=== PATIENT | female | born 1960 | race Caucasian/White ===

== ENCOUNTER 2024-01-31 12:50 | Outpatient (CLI) | payer MEDICARE, BC, SELFPAY ==
--- NOTE | 2024-01-31 13:00 | MM_ITS ---
Patient: LIZY BOOKER Facility:?[facility] Patient ID:?[id number] Site Patient ID:?[id number]. Site :?[id number] Study:?XRay-Breast Bilateral 3D W/CAD-01/31/2024 3:19:17 PM Ordering Physician:Sahnita Chavez Final Report: BILATERAL SCREENING MAMMOGRAM WITH COMPUTER-AIDED DETECTION AND TOMOSYNTHESIS TECHNIQUE: CC and MLO views were obtained. These mammographic images have been obtained using full-field digital technique. These mammographic images were interpreted with the benefit of computer-aided detection. Breast Tomosynthesis was used in this interpretation. COMPARISON FILM: 10/16/12. FINDINGS: The breasts are almost entirely fatty. IMPRESSION: There is no radiographic evidence for malignancy. ASSESSMENT: BI-RADS Category 1: Negative RECOMMENDATION: Routine screening mammogram in 1 year. A lay language report of this examination will be provided to the patient. Renny Levy M.D. Diagnostic Radiologist [email or web address] DSM/sp R& Transcribed: 2:51 p.m. SP/Dictated by: Renny Levy MD @ 02/01/2024 12:22:00 PM Signed by:?Renny Levy MD @02/01/2024 2:59:52 PM (Electronic Signature)
== END 2024-01-31 12:51 | disposition home or self-care (01) ==
LOC: MAMMO 12:52
PROVIDERS: PCP Nurse Practitioner Family; Visit Provider Nurse Practitioner Family
DX: Z12.31 Encounter for screening mammogram for malignant neoplasm of breast (principal)
CPT/HCPCS: 77063; 77067

== ENCOUNTER 2024-06-12 11:23 | Outpatient (CLI) | payer MEDICARE, BC, SELFPAY | END 2024-06-12 11:24 | disposition home or self-care (01) | PROVIDERS: PCP Nurse Practitioner Family; Visit Provider Nurse Practitioner Family | DX: E78.5 Hyperlipidemia, unspecified (principal); I10 Essential (primary) hypertension; E11.9 Type 2 diabetes mellitus without complications | CPT/HCPCS: 80053; 80061 ==

== ENCOUNTER 2025-06-11 10:50 | Outpatient (CLI) | payer MEDICARE, BC, SELFPAY | END 2025-06-11 10:51 | disposition home or self-care (01) | LOC: NFLDREF 06-13 08:45 | PROVIDERS: PCP Nurse Practitioner Family; Referring Provider Nurse Practitioner Family; Visit Provider Nurse Practitioner Family | DX: E78.2 Mixed hyperlipidemia (principal); I10 Essential (primary) hypertension; E13.9 Other specified diabetes mellitus without complications; E66.01 Morbid (severe) obesity due to excess calories; Z68.43 Body mass index [BMI] 50.0-59.9, adult | CPT/HCPCS: 80053; 80061; 82043; 82570 ==

== ENCOUNTER 2025-06-18 08:59 | Day surgery (SDC) | payer MEDICARE, BC, SELFPAY ==
[2025-06-18] VITALS (20 sets, daily range): BP systolic 99–149; BP diastolic 50–80; PULSE 67–100; RESP 13–20; TEMP 36.1–36.9; O2SAT 93–99; BMI 53.0
[2025-06-18] MEDS: SODIUM CHLORIDE 0.9 % (FLUSH) 10 ML SYRINGE IVF (10:00)
[2025-06-18] MEDS: LACTATED RINGERS 1000 ML 1,000 ML 100 ML IV ×2 (10:00→13:53)
--- NOTE | 2025-06-18 10:45 | CRLHL7_ITS ---
For Patients: As a result of the Cures Act, medical imaging exams and procedure reports are released immediately into your electronic medical record. You may view this report before your referring provider. If you have questions, please contact your health care provider. INDICATION: Left hip arthroplasty. TECHNIQUE: Fluoroscopically guided intraoperative evaluation of the left hip. FINDINGS: Two portable spot intraoperative images demonstrate a left hip arthroplasty. 79.3 seconds fluoroscopy time utilized. IMPRESSION: Left hip arthroplasty. 79.3 seconds fluoroscopy time utilized intraoperatively. Dictated by Francisco Lr MD @ 06/23/2025 10:33:46 AM (Electronically Signed)
[2025-06-18] MEDS: OXYCODONE (CR) 10 MG TAB.ER.12H PO (11:30)
[2025-06-18] MEDS: CELECOXIB 200 MG CAPSULE PO (11:30)
[2025-06-18] MEDS: ACETAMINOPHEN 500 MG TABLET 1000 MG PO ×3 (11:30→23:32)
[2025-06-18] MEDS: MIDAZOLAM HCL 1 MG/ML inj IVP (11:32)
--- NOTE | 2025-06-18 11:36 | SUR.PREOP ---
TIME?OUT:?11:29 AM PT/RN/MDA?VERIFICATION?OF?SURGICAL?SITE,?PROCEDURE,?AND?CONSENT OBTAINED?PRIOR?TO?INVASIVE?PROCEDURE.
[2025-06-18] MEDS: TRANEXAMIC ACID 100 MG/ML INJ 1000 MG IV (12:21)
--- NOTE | 2025-06-18 14:26 | P.ANES_ITS ---
Anesthesia Charges Start Date/Time Anesthesia Start Date: 06/18/25 Anesthesia Start Time: 11:54 Stop Date/Time Anesthesia Stop Date: 06/18/25 Anesthesia Stop Time: 15:12 Coding CPT Codes CPT Codes: ANESTH HIP ARTHROPLASTY - 28778 ([id number]) P3 - PATIENT W/SEVERE SYS DISEASE, QK - BELT MACHINE OPERATOR 2-4 CNCRNT ANES PROC, QX - [employer] SUPERINTENDENT OF SCHOOLS SVC W/ MD MED DIRECTION
--- NOTE | 2025-06-18 14:26 | W.ANESCHARGE ---
Anesthesia Charges Start Date/Time Anesthesia Start Date: 06/18/25 Anesthesia Start Time: 11:54 Stop Date/Time Anesthesia Stop Date: 06/18/25 Anesthesia Stop Time: 15:12 Coding CPT Codes CPT Codes: ANESTH HIP ARTHROPLASTY - 55407 ([id number]) P3 - PATIENT W/SEVERE SYS DISEASE, QK - SOCK LINING EXAMINER 2-4 CNCRNT ANES PROC, QX - DISBURSING AGENT SVC W/ MD MED DIRECTION
--- NOTE | 2025-06-18 14:26 | W.PM.NB ---
Nerve Block Nerve Block Time Seen by Provider: 11:35 Date Seen: 06/18/25 Type of block requested by surgeon for post-operative analgesia: DORON/LFCN Side: left Time out performed: Yes Verification of patient name: Yes Verification of date of : Yes Site marking: site marked Name of person performing procedure: Marcio Continuous monitoring Was continuous monitoring of O2 sat, B/P, teletypesetter monitor, recorded every 15 minutes?: Yes Procedure Checklist: sterile prep, needles and gloves Ultrasound guided. Images saved: Yes Medications given in 5ml increments after negative aspiration: Ropivicaine %: 0.5 mL: 30 Needle gauge: 20 Precedex (mcg): 25 Patient tolerated procedure well: Yes Additional comments: Needle noted below psoas tendon needle noted adjacent to LFCN Block Charges Block Charge (with Pro Fee): Other Periph Nerve Block Use of Ultrasound Machine for Block: Yes- US Guidance/pain block
--- NOTE | 2025-06-18 14:29 | CRLHL7_ITS ---
For Patients: As a result of the Cures Act, medical imaging exams and procedure reports are released immediately into your electronic medical record. You may view this report before your referring provider. If you have questions, please contact your health care provider. INDICATION: Follow up a left total hip arthroplasty. TECHNIQUE: AP portable postoperative x-ray of the pelvis. Two dedicated views of the left hip performed postoperatively as well. FINDINGS: There is a left hip arthroplasty. The components are adequately aligned and well seated. Degenerative change of the symphysis pubis and right hip. IMPRESSION: Adequate alignment status post left total hip arthroplasty. Dictated by Francisco Lr MD @ 06/23/2025 10:35:05 AM (Electronically Signed)
--- NOTE | 2025-06-18 14:31 | P.ORPRC_ITS ---
Procedure Note Date of procedure: 06/18/25 Procedure: PREOPERATIVE DIAGNOSIS: Left hip osteoarthritis POSTOPERATIVE DIAGNOSIS: Left hip osteoarthritis NAME OF OPERATION: Left total hip arthroplasty SURGEON: Marcin Bell MD TECH INTERN: Jackeline Ramsay PA-C, DUSTIN Vazquez IMPLANTS: 1. [employer] [place] # 52 sector ingrowth cup 2. 36 x 52 +4 neutral polyethylene 3. Actis # 7 standard collared ingrowth stem 4. 36 + 5 ceramic femoral head ANESTHESIA: General ESTIMATED BLOOD LOSS: 500 cc COMPLICATIONS: None SPECIMENS: None DRAINS: None PREOPERATIVE ANTIBIOTICS: Ancef 3 grams INDICATIONS: The patient is a 65-year-old with a longstanding history of sever e, unrelenting left hip pain secondary to end-stage left hip osteoarthritis. Despite appropriate nonoperative management, including activity modification, use of an assist device, anti-inflammatories, [id number]-peh-[id number] pain medication, physical therapy and injections, they continue to have pain and disability. Operative intervention was offered. The risks, benefits and expected outcomes were discussed in detail. These included but were not limited to: Infection, bleeding, injury to blood vessel or nerve, venous thromboembolism. All questions were answered to their satisfaction. Use of an acute care certified nursing assistant was necessary throughout the case for patient positioning and safety, soft tissue retraction and closure. A modifier 22 should be added to this case. The patient's weight of 140 kg with a BMI 53 made positioning and exposure difficult. This added time to complete the case. PROCEDURE: The patient was placed supine on the [place] table. General anesthesia was administered. The acute care certified nursing assistant made sure the patient was properly positioned. The left hip was prepped and draped in the usual sterile fashion. The image intensifier was brought in for a perfect AP pelvis and a perfect double tear drop AP view of each hip which were used for intraoperative templating with our fluoroscopic guide. A bikini incision was made in the inguinal crease. The acute care certified nursing assistant retracted the soft tissues to protect them. Subcutaneous dissection was taken with electrocautery to the superficial fascia. The fascia was divided in line with the TFL fibers. Blunt dissection was carried medially to the tensor fascia rey and sartorius interval. Deep dissection was carried with electrocautery. The circumflex vessels were cauterized and divided. The capsule was exposed and then divided in a T-fashion, tagged with #1 FiberWire sutures. Retractors were placed in the joint, held by the acute care certified nursing assistant. The corkscrew was placed in the femoral head. The neck cut was made in the subcapital region. We made a second neck cut more distal. The napkin ring of bone was removed. The femoral head was removed intact. Acetabular retractors were placed, held by the acute care certified nursing assistant. The labrum was sharply debrided. The capsule was released. The 43 mm reamer was used to the true medial wall. We then enlarged in 2 mm increments using the image intensifier for our reamer placement. We impacted the cup which had excellent purchase. We placed the polyethylene. Attention was then turned to the proximal femur. The limb was placed in 140 degrees of external rotation, maximum extension and adduction. A significant amount of time was spent releasing the capsule to allow us to deliver the femur into the wound and complete the femoral side safely. Retractors were held by the acute care certified nursing assistant throughout the femoral preparation. The box gluer and canal finder were used. Broaches were used to a stable size. The calcar reamer was used. Trial components were placed. The hip was reduced and was found to be stable with appropriate soft tissue tension. Length and offset had been nicely restored using the image intensifier and our fluoroscopic guide. Trial components were removed. The stem was impacted. We placed the femoral head. Again, the hip was reduced and was found to be stable with appropriate soft tissue tension. Length and offset had been nicely restored. The acute care certified nursing assistant did a three minute dilute Betadine solution soak. The acute care certified nursing assistant irrigated the wound with 3 liters of normal saline via pulse lavage. The acute care certified nursing assistant repaired the anterior capsule with a #1 Vicryl and our previously placed Ethibond sutures. The acute care certified nursing assistant closed the fascia over the tensor fascia rey with a #1 PDO Stratafix, subcutaneous tissues with 2-0 Vicryl, skin with a running 3-0 Stratafix and glue. A dry dressing was applied by the acute care certified nursing assistant. Sponge and needle counts were correct x 2. The patient tolerated the procedure well; there were no apparent complications. They were awakened and extubated in the operating room, sent to the Post-Anesthesia Care Unit in satisfactory condition. PLAN: 1. The patient will be mobilized with physical therapy, weight-bearing as tolerates 2. Xarelto x 5 days then aspirin x 30 days will be used for DVT prophylaxis 3. The patient will be discharged once medically appropriate
--- NOTE | 2025-06-18 14:50 | PM.IMCN1 ---
Date of Consult Consult date: 06/18/25 Primary Care Provider: Shanita Wilson CNP Consult Narrative Narrative: Yi Childs is a 65 year old female With past medical history of hypertension, hyperlipidemia, diabetes and morbid obesity who presents for an elective total lt hip replacement surgery. Previous surgeries include abdominal hysterectomy, . No personal or family history of anesthesia complications or bleeding disorders. Patient has stopped all NSAIDs and has stopped her baby aspirin prior to sx. Patient's diabetes is controlled with a recent A1c of 6.1% this May. Review of Systems Status of ROS: Reports: 6 or more systems reviewed and unremarkable except as noted in History and below PFSH [facility] Medical History (Updated 06/18/25 @ 14:57 by Francy Espinoza MD) Hypertension ?I10 - Essential (primary) hypertension (ICD-10) Hyperlipidemia ?E78.5 - Hyperlipidemia, unspecified (ICD-10) Morbid obesity with body mass index (BMI) of 50.0 to 59.9 in adult ?E66.01 - Morbid (severe) obesity due to excess calories (ICD-10) ?Z68.43 - Body mass index [BMI] 50.0-59.9, adult (ICD-10) Osteoarthritis of left hip ?M16.12 - Unilateral primary osteoarthritis, left hip (ICD-10) Diabetes 1.5, managed as type 2 ?E13.9 - Other specified diabetes mellitus without complications (ICD-10) Surgical History (Updated 06/18/25 @ 14:54 by Francy Espinoza MD) H/O dilation and curettage ?Z98.890 - Other specified postprocedural states (ICD-10) History of abdominal hysterectomy (11/08/12) ?Z90.710 - Acquired absence of both cervix and uterus (ICD-10) History of section ?Z98.891 - History of uterine scar from previous surgery (ICD-10) Family History Son Blood clot in leg Social History (Updated 06/11/25 @ 13:47 by Angélica Paredes ~ [facility]) Narrative: to Robby 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 Three adult children, 10 grandchildren What is your current living situation?: I presently have a place to live Problems where you live: no known problems Problems where you live details: NA In the past 12 months, utilities in danger of being shut off: no In past 12 months, lack of transportation kept you from medical appts, meetings, work, or getting things needed for daily living: no In the past 12 mos, have been you worried that your food would run out before you had money to buy more?: never true In the past 12 mos, the food you bought just didn't last and you didn't have money to buy more?: never true Smoking Status: Never smoker Do you use any of these nicotine containing products: None Second hand tobacco smoke exposure: No How often do you have a drink containing alcohol: 2-4 times a month How many standard drinks containing alcohol do you have on a typical day: 1 or 2 AUDIT-C Alcohol total score: 2 Non-prescribed substance use: denies use Caffeine: Yes How often does anyone, including family, friends and others, physically hurt you: never How often does anyone, including family, friends and others, insult or talk down to you: never How often does anyone, including family, friends and others, threaten you with harm: never How often does anyone, including family, friends and others, scream or curse at you: never service: No Meds Home Medications and Allergies Home Medications ?Medication ?Instructions ?Recorded ?Confirmed ?Type aspirin 81 mg tablet,delayed 81 mg PO QDAY 07/05/23 06/18/25 History release (Adult Low Dose Aspirin) Held on 06/18/25. Instructions: Resume on 06/24/25. take aspirin 81 mg twice a day for 30 days after completing 5 days of anticoagulation with Xarelto/ rivaroxaban. After 30 days you can go back to regular dose of aspirin 81 mg once a day. amlodipine 5 mg tablet 5 mg PO QDAY #90 tabs 06/12/24 06/18/25 Rx atorvastatin 40 mg tablet 40 mg PO QDAY #90 tabs 06/12/24 06/18/25 Rx lisinopril 20 2 tab PO QDAY #180 tabs 06/12/24 06/18/25 Rx mg-hydrochlorothiazide 12.5 mg tablet ibuprofen 200 mg tablet (Motrin IB) 400 mg PO Q8H PRN 06/11/25 06/18/25 History Held on 06/18/25. Instructions: Resume on 06/24/25. metformin 500 mg tablet,extended 500 mg PO BID #180 tabs 06/11/25 06/18/25 Rx release 24 hr phentermine 30 mg capsule 30 mg PO QDAY #90 caps 06/11/25 06/18/25 Rx Held on 06/18/25. Instructions: Resume on 06/25/25. Resume once your primary care physician allows it. acetaminophen 500 mg capsule 500 - 1,000 mg (1 - 2 x 500 mg) PO 06/18/25 Rx Q6H PRN pain #100 caps aspirin 81 mg chewable tablet 81 mg PO BID for DVT prophylaxis 06/18/25 Rx (Aspirin Childrens) 30 days #60 tabs oxycodone 5 mg tablet 2.5 - 5 mg (0.5 - 1 x 5 mg) PO 06/18/25 Rx Q4-6H PRN Pain #42 tabs rivaroxaban 10 mg tablet (Xarelto) 10 mg PO DAILY DVT prophylaxis 4 06/18/25 Rx days #4 tabs sennosides 8.6 mg tablet (Senna 17.2 mg (2 x 8.6 mg) PO BID PRN 06/18/25 Rx Lax) constipation #100 tabs Allergies Allergy/AdvReac Type Severity Reaction Status Date / Time No Known Drug Allergies Allergy Verified 06/18/25 09:33 Exam Narrative: Exam Narrative: Physical exam GENERAL: Comfortable, no acute distress. HEAD AND NECK: Atraumatic, normocephalic CARDIOVASCULAR: RRR. Normal S1, S2. No murmurs. RESPIRATORY: Clear to auscultation B/L. Good air entry B/L. NEUROLOGY: Alert, awake, oriented X 3. Normal speech. PSYCH: Normal mood, normal affect. Const: Vital Signs, click to edit/add: Vital Signs - 24 hr 06/18/25 10:00 Temperature 98.0 F Pulse Rate 96 Respiratory Rate 16 Blood Pressure 149/78 H Pulse Oximetry 99 Oxygen Delivery Me thod Room Air Assessment and Plan Assessment and plan (1) Status post total hip replacement, left: Problem comment: -Start early ambulation with physical therapy. -Xarelto x 5 days then aspirin x 30 days will be used for DVT prophylaxis -Monitor for urine output postoperatively, bladder scan if needed. -Encourage incentive spirometry. Status: Acute (2) Diabetes 1.5, managed as type 2: Problem comment: Type II diabetes - A1c of 6.1% in 05/2025, on metformin. will order insulin sliding scale during her stay at the hospital. Status: Chronic (3) Hypertension: Problem comment: HTN: on amlodipine 5 mg daily, lisinopril/ hydrochlorothiazide 20-12.52 tablets every day. Status: Acute (4) Morbid obesity with body mass index (BMI) of 50.0 to 59.9 in adult: Problem comment: Morbid Obesity, BMI 51.9. Patient was on Ozempic for a while to help with weight loss. Patient did not like some of the side effects. she was restarted on phentermine 30 mg daily that she will resume after her left hip replacement. Status: Acute (5) Hyperlipidemia: Problem comment: on a statin Status: Acute (6) Osteoarthritis of left hip: Problem comment: Severe, [id number] Status: Acute Total Time Spent Total Time Spent: Time spent: Today I spent 75 minutes seeing the patient, discussing the patient with ER staff, reviewing Expanse and EPIC notes/diagnostics, discussing the care plan with our care time that includes social work, PT/OT, pharmacy, RT, residential and documenting my impressions and plan in the medical record.
--- NOTE | 2025-06-18 15:11 | P.ANES_ITS ---
Anesthesia Charges Start Date/Time Anesthesia Start Date: 06/18/25 Anesthesia Start Time: 11:54 Stop Date/Time Anesthesia Stop Date: 06/18/25 Anesthesia Stop Time: 15:12 Coding CPT Codes CPT Codes: ANESTH HIP ARTHROPLASTY - 98963 ([id number]) P3 - PATIENT W/SEVERE SYS DISEASE, QK - RADIOLOGY EQUIPMENT SERVICER 2-4 CNCRNT ANES PROC, QX - CREW DISPATCHER SVC W/ MD MED DIRECTION
--- NOTE | 2025-06-18 15:11 | W.ANESCHARGE ---
Anesthesia Charges Start Date/Time Anesthesia Start Date: 06/18/25 Anesthesia Start Time: 11:54 Stop Date/Time Anesthesia Stop Date: 06/18/25 Anesthesia Stop Time: 15:12 Coding CPT Codes CPT Codes: ANESTH HIP ARTHROPLASTY - 07349 ([id number]) P3 - PATIENT W/SEVERE SYS DISEASE, QK - SCALE TESTER 2-4 CNCRNT ANES PROC, QX - VENEER MARKER SVC W/ MD MED DIRECTION
--- NOTE | 2025-06-18 15:57 | SUR.PHASEI ---
mona CAGE bag number 3 at 1530; 650cc left at end of phase 1; unable to add to emar
[2025-06-18] MEDS: CEFAZOLIN 3 GM in 0.9 % SODIUM CHLORIDE Mini-bag 100 ML IVPB (18:00)
[2025-06-18] MEDS: SENNOSIDES 1 TAB TABLET 2 TAB PO (21:25)
[2025-06-19] MEDS: CEFAZOLIN 3 GM in 0.9 % SODIUM CHLORIDE Mini-bag 100 ML IVPB (02:19)
[2025-06-19 02:33] VITALS: BP 163/92; PULSE 102; RESP 18; O2SAT 98
[2025-06-19] MEDS: ACETAMINOPHEN 500 MG TABLET 1000 MG PO (05:46)
--- NOTE | 2025-06-19 06:27 | PC.NURSE ---
19-: Pleasant and cooperative. SBA with gb and walker. Ambulating well. Rating pain 0-2/10, declining need for prn pain medication. Active ice to left hip, dressing CDI.?
[2025-06-19 06:56] LABS: Hematocrit 37.0 % (33.0-51.0); Hemoglobin* 11.9 gm/dL (12.0-16.0); Mean Corpuscular HGB Conc 32 gm/dL (32-36); Mean Corpuscular Hemoglobin 29 pg (26-34); Mean Corpuscular Volume 91 fL (80-100); Red Blood Count 4.08 m/uL (4.00-5.20); White Blood Count* 13.21 K/uL (4.50-11.00)
[2025-06-19 07:00] LABS: Albumin* 3.7 g/dL (3.3-5.0); Chloride* 104 mmol/L (96-114); Sodium* 137 mmol/L (135-149)
[2025-06-19 07:01] LABS: Potassium* 3.9 mmol/L (3.6-5.1); Slide Review Reflex No
[2025-06-19 07:03] LABS: Alanine Aminotransferase* 22 U/L (4-35); Alkaline Phosphatase* 70 U/L (40-150); Anion Gap 5 mEq/L (7-15); Aspartate Amino Transferase* 40 U/L (12-35); Bilirubin Total* 0.7 mg/dL (0.1-1.5); Blood Urea Nitrogen* 14 mg/dL (7-30); Calcium* 9.3 mg/dL (8.4-10.6); Carbon Dioxide* 28 mmol/L (20-32); Creatinine* 0.6 mg/dL (0.5-1.5); Est. Creatinine Clearance* 45.16; Estimated Glomerular Filt Rate 98 ml/min; Glucose* 127 mg/dL (60-115); Total Protein* 6.0 g/dL (6.0-8.3)
[2025-06-19 08:15] VITALS: BP 140/73; PULSE 124; RESP 16; TEMP 36.8; O2SAT 96
--- NOTE | 2025-06-19 09:01 | PM.ORPN ---
Subjective Subjective Time Seen by Provider: 07:15 Date Seen: 06/19/25 Principal diagnosis: Status post left hip replacement Interval history: Yi plans to discharge today with her . He is with her this morning. She is comfortable in the recliner this morning Ortho Exam Narrative Exam Narrative: Alert and oriented x3. Patient is in no acute distress. Converses without labored breathing. Hearing is grossly intact. Ambulates with a walker. Examination of the left hip shows mild soft tissue edema. Dressing is in place and intact. No erythema or warmth or sign of infection. CMS intact left lower extremity. Calves are soft and nontender. Const Vital Signs, click to edit/add: Vital Signs - 24 hr 06/18/25 10:00 06/18/25 15:10 06/18/25 15:15 Temperature 98.0 F 97.9 F Pulse Rate 96 68 71 Respiratory Rate 16 20 18 Blood Pressure 149/78 H 113/60 108/60 Pulse Oximetry 99 93 94 Oxygen Delivery Method Room Air Room Air 06/18/25 15:20 06/18/25 15:25 06/18/25 15:30 Temperature Pulse Rate 67 68 70 Respiratory Rate 16 15 13 Blood Pressure 111/50 L 99/61 103/63 Pulse Oximetry 93 94 95 Oxygen Delivery Method 06/18/25 15:35 06/18/25 15:40 06/18/25 15:52 Temperature 97.0 F L 97.2 F L Pulse Rate 71 69 70 Respiratory Rate 14 16 16 Blood Pressure 101/70 119/77 105/67 Pulse Oximetry 94 94 95 Oxygen Delivery Method Room Air 06/18/25 16:00 06/18/25 16:15 06/18/25 16:30 Temperature 97.5 F L Pulse Rate 76 80 71 Respiratory Rate 16 16 16 Blood Pressure 126/76 125/73 127/77 Pulse Oximetry 97 98 96 Oxygen Delivery Method Room Air Room Air Room Air 06/18/25 16:45 06/18/25 17:00 06/18/25 17:30 Temperature 97.7 F Pulse Rate 78 72 78 Respiratory Rate 18 16 16 Blood Pressure 117/75 127/77 123/80 Pulse Oximetry 97 99 97 Oxygen Delivery Method Room Air Room Air Room Air 06/18/25 18:15 06/18/25 19:16 06/18/25 21:39 Temperature 97.7 F Pulse Rate 81 100 100 Respiratory Rate 16 16 16 Blood Pressure 114/74 121/69 126/79 Pulse Oximetry 98 96 Oxygen Delivery Method Room Air Room Air 06/18/25 22:41 06/18/25 23:00 06/19/25 02:33 Temperature 98.4 F Pulse Rate 92 102 H Respiratory Rate 16 18 18 Blood Pressure 132/78 163/92 H Pulse Oximetry 96 97 98 Oxygen Delivery Method Room Air Room Air Room Air Assessment and Plan Assessment and plan (1) Status post total hip replacement, left: Problem details: -Start early ambulation with physical therapy. -Xarelto x 5 days then aspirin x 30 days will be used for DVT prophylaxis -Monitor for urine output postoperatively, bladder scan if needed. -Encourage incentive spirometry. Status: Acute Assessment and Plan: Plan for discharge is today, and when they meets discharge criteria. DVT prophylaxis upon discharge [includes Xarelto 10mg daily for a total of 5 days, then Aspirin 81mg twice daily for 30 days]. Remove dressing 1 week. Observe wound and phone Orthopedics with any questions or concerns Use Ice on operative hip unrestricted. Return to clinic in 7-10 days for a wound check Return to clinic in 6 weeks with surgeon Minimize narcotic use. Wean off and discontinue soon as possible. Activities as tolerated. No strenuous activity. Attend outpt PT
[2025-06-19] MEDS: SENNOSIDES 1 TAB TABLET 2 TAB PO (09:26)
[2025-06-19] MEDS: RIVAROXABAN 10 MG TABLET PO (09:26)
[2025-06-19] MEDS: ATORVASTATIN CALCIUM 40 MG TABLET PO (09:26)
--- NOTE | 2025-06-19 11:51 | PC.NURSE ---
Arrived to find the patient sitting in their chair alert and oriented. Vitally they showed a pulse of 124 and a blood pressure of 140/73. This is a change from 0300 when pulse was 102 and blood pressure 163/92. Pulse felt like every third beat or so was weaker. MD notified and EKG taken. Sinus tachycardia recorded. Otherwise, they appear well and report no pain or complications. Their left hip incision area is covered without sign of discharge, bruising, or swelling. CMS intact in all extremities. Breathing is clear and dry. No edema. The patient tolerated PT very well and was approved for discharge. They appeared in a stable state of health at time of leaving.?
== END 2025-06-19 10:30 | disposition home or self-care (01) ==
LOC: OR 09:01 → MEDSURG 09:03
PROVIDERS: Student in an Organized Health Care Education/Training Program; PCP Nurse Practitioner Family; Visit Provider Orthopaedic Surgery
PROC: (CPT 27130; principal; 2025-06-18 10:45)
DX: M16.12 Unilateral primary osteoarthritis, left hip (principal); G89.18 Other acute postprocedural pain; E11.9 Type 2 diabetes mellitus without complications; E66.01 Morbid (severe) obesity due to excess calories; Z68.43 Body mass index [BMI] 50.0-59.9, adult; I10 Essential (primary) hypertension; E78.5 Hyperlipidemia, unspecified; Z79.82 Long term (current) use of aspirin; Z79.84 Long term (current) use of oral hypoglycemic drugs
CPT/HCPCS: 27130; 01214; 36415; 64450; 73501; 76000; 76942; 80053; 82962; 83735; 85027; 86850; 86900; 86901; 97110; 97116; 97161; 97165; 97535; A9270; C1776; J0690; J1100; J1171; J2250; J2371; J2405; J2704; J2795; J3010; J3490; J7120

== ENCOUNTER 2025-07-01 07:06 | Outpatient (RCR) | payer MEDICARE, BC, SELFPAY ==
--- NOTE | 2025-07-01 08:17 | PT.OPEX ---
PT [place] [facility] PT [facility] Outpatient Eval Start: 07/01/25 07:13 Freq: Status: Active Protocol: Document 07/01/25 07:14 HLA (Rec: 07/01/25 08:08 HLA No Response) E-signed By Mulu Loza, PT, DPT Physical Therapy Outpatient Evaluation Insurance Information Recert Due Date 09/28/25 Insurance Name Medicare B,Blue Cross/[employer] Medical Diagnosis L ant NAOMI Treating Diagnosis weakness, impaired ROM after L ant NAOMI Referring MD Bell Subjective Preferred Name Yi Subjective Leg is heavy, not painful necessarily. Advanced herself to a cane at home. Still struggles moving in bed. Doing her exercises 2-3x/day. Pain Comments mild to none L hip, more stiffness. Date of Next 07/01/25 Physician Visit Date of Surgery (If 06/18/25 applicable) Current Work Status Retired Precautions Weight Bearing Weight Bear as Tolerated Status Therapy Limitations/ Not Limited Systems Review Objective Range of Motion B UEs WNL R LE WNL L hip 15-100 flex, abd 0-25, ER 0-20, IR 0-20 L knee/ankle full Strength 5-/5 R LE L hip 3+/5, knee 5-/5, ankle 5/5 UEs 5/5 Swelling not swelling but 2 cm open/pus area along mid incision L hip in her fold. Blackened area surrounding-mole? pt indicates she has had that. Palpation tender along lat thigh/IT band Balance & Gait Gait hips flexed, cane too high, antalgic L LE. Stairs step to with railing Balance good seated/fair stand with cane Posture rounded shldrs, fwd head, flexed at hips Sensation/Reflexes intact to light touch Functional Test LEFS 38/80 or 47.5% Performed & Score Assessment Assessment/ Yi is a 65 year old female s/p L ant NAOMI 06/18/[address] Bell. She had been using a cane prior to surgery. Pt lives with spouse in split level home. Stairs have been going ok. She has been sleeping in the recliner, difficulty getting in and out of bed. Pain has been mild to none since surgery and primarily she is taking Tylenol, no narcotics. She has drainage/pus area 2 cm along incision, warmth/moisture in her abdominal folds. Sees ortho for that today. Pt with limited L hip ROM, strength, antalgic gt after L NAOMI. Her posture and tendency to sit in recliner increase HF and we worked on lying flat in bed, bed mob as well as ex to increase core strength and stretch//strengthen hips. Pt will benefit from PT weekly to advance ex for ROM, strength and gt, return to community distance amb. Primary Functional impaired ROM, strength, bed mob, transfers, gt ability Limitations Plan of Care Rehabilitation Good Potential Physical Therapy Within 4-6 weeks Goals 1. Pt will amb level surfaces 20 min without an assistive device and no evidence of limp. 2. Pt will ascend/descend 13 stairs with railing reciprocally, safely and independently for household and community mobility. 3. Pt will demonstrate normal strength of surgical hip to prevent substitution of movement, prevent falls with mobility. 4. Pt will be independent in home ex program to promote strength and mobility and to prevent falls. Coordination/ Referral Source Communication With Treatment Plan/ Gait Training,Manual Therapy,Neuromuscular Re-ed,Self- Direct Interventions Care/Home Management,Therapeutic Activities,Therapeutic Exercises Patient Will Be Completion of LTG(s),Skills Plateau,Independent w/HEP, Discharged From Independently Progressing Therapy Evaluation Billing Untimed Code 15 Treatment Minutes PT Eval No Charge No Complexity Low Certification Information Initial 07/01/25 Certification Date Ending Certification 09/28/25 Date Provider Signature Yes Required Provider Signature POC & Medical Necessity Shows Agreement With Physician NPI Number Write NPI# Here Physician Comment/ : Change Physician Signature Please Sign/Date Here & Date Requested
== END 2025-10-09 14:45 | disposition home or self-care (01) ==
PROVIDERS: PCP Nurse Practitioner Family; Visit Provider Orthopaedic Surgery
DX: Z47.1 Aftercare following joint replacement surgery (principal); Z96.642 Presence of left artificial hip joint; Z51.89 Encounter for other specified aftercare
CPT/HCPCS: 97161

== ENCOUNTER 2025-07-05 22:48 | Emergency (ER) | payer MEDICARE, BC, SELFPAY ==
[2025-07-05 23:15] VITALS: BP 104/59; PULSE 117; RESP 18; TEMP 37.1; O2SAT 96; BMI 52.5
--- NOTE | 2025-07-06 00:03 | ED.GENADULT ---
HPI - General Adult General Time Seen by Provider: 00:03 Date Seen: 07/06/25 Chief complaint: Post Op Complication Stated complaint: discharge on bandage from L hip replacement Time Seen by Provider: 07/06/25 00:03 Source: patient Mode of arrival: ambulatory Limitations: no limitations History of Present Illness HPI narrative: 65-year-old female who is postop hip replacement on June 14 for comes in today with concern for drainage on her bandage. Patient was seen in the office on July 03 after wound had been debrided July 01. Related Data Home Medications ?Medication ?Instructions ?Recorded ?Confirmed aspirin 81 mg tablet,delayed 81 mg PO QDAY 07/05/23 07/05/25 release (Adult Low Dose Aspirin) ibuprofen 200 mg tablet (Motrin IB) 400 mg PO Q8H PRN 06/11/25 07/05/25 Held on 06/18/25. Instructions: Resume on 06/24/25. Previous Rx's ?Medication ?Instructions ?Recorded phentermine 30 mg capsule 30 mg PO QDAY #90 caps 06/11/25 Held on 06/18/25. Instructions: Resume on 06/25/25. Resume once your primary care physician allows it. aspirin 81 mg chewable tablet 81 mg PO BID for DVT prophylaxis 06/18/25 (Aspirin Childrens) 30 days #60 tabs amlodipine 5 mg tablet 5 mg PO QDAY #90 tabs 06/24/25 atorvastatin 40 mg tablet 40 mg PO QDAY #90 tabs 06/24/25 lisinopril 20 2 tab PO QDAY #180 tabs 06/27/25 mg-hydrochlorothiazide 12.5 mg tablet cephalexin 500 mg capsule 500 mg PO QID #40 caps 07/03/25 Allergies Allergy/AdvReac Type Severity Reaction Status Date / Time No Known Drug Allergies Allergy Verified 07/05/25 23:26 [facility] Medical History (Updated 07/06/25 @ 00:43 by Grayson Lyle MD) Hypertension ?I10 - Essential (primary) hypertension (ICD-10) Hyperlipidemia ?E78.5 - Hyperlipidemia, unspecified (ICD-10) Morbid obesity with body mass index (BMI) of 50.0 to 59.9 in adult ?E66.01 - Morbid (severe) obesity due to excess calories (ICD-10) ?Z68.43 - Body mass index [BMI] 50.0-59.9, adult (ICD-10) Osteoarthritis of left hip ?M16.12 - Unilateral primary osteoarthritis, left hip (ICD-10) Diabetes 1.5, managed as type 2 ?E13.9 - Other specified diabetes mellitus without complications (ICD-10) Surgical History (Updated 07/06/25 @ 00:41 by Grayson Lyle MD) H/O dilation and curettage ?Z98.890 - Other specified postprocedural states (ICD-10) History of abdominal hysterectomy (11/08/12) ?Z90.710 - Acquired absence of both cervix and uterus (ICD-10) History of section ?Z98.891 - History of uterine scar from previous surgery (ICD-10) Family History Son Blood clot in leg Social History (Updated 06/11/25 @ 13:47 by Angélica Paredes ~ [facility]) Narrative: to Robby 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 Three adult children, 10 grandchildren What is your current living situation?: I presently have a place to live Problems where you live: no known problems Problems where you live details: NA In the past 12 months, utilities in danger of being shut off: no In past 12 months, lack of transportation kept you from medical appts, meetings, work, or getting things needed for daily living: no In the past 12 mos, have been you worried that your food would run out before you had money to buy more?: never true In the past 12 mos, the food you bought just didn't last and you didn't have money to buy more?: never true Smoking Status: Never smoker Do you use any of these nicotine containing products: None Second hand tobacco smoke exposure: No How often do you have a drink containing alcohol: 2-4 times a month How many standard drinks containing alcohol do you have on a typical day: 1 or 2 AUDIT-C Alcohol total score: 2 Non-prescribed substance use: denies use Caffeine: Yes How often does anyone, including family, friends and others, physically hurt you: never How often does anyone, including family, friends and others, insult or talk down to you: never How often does anyone, including family, friends and others, threaten you with harm: never How often does anyone, including family, friends and others, scream or curse at you: never service: No Exam Narrative: Exam Narrative: General: well nourished , NAD Head: Atraumatic and normocephalic ENT: External ears and external nose are normal Eyes: Conjunctiva clear, pupils are equal reactive, external ocular motions are intact Neck: Full spontaneous range of motion of the neck Lungs: No respiratory distress Musculoskeletal: No tenderness or deformity Neurologic: No gross focal neurologic deficits Skin: Dressing soaked with serosanguineous drainage, Left anterior hip incision with about 2.5cm by 1 cm area of necrotic tissue with copious serosanguineous drainage. Psych: Mood and affect are appropriate Const: Vital Signs, click to edit/add: Vital Signs - 24 hr 07/05/25 23:15 Temperature 98.7 F Pulse Rate [Pulse Oximeter] 117 H Respiratory Rate 18 Blood Pressure [Ri ght Forearm] 104/59 L Pulse Oximetry 96 Oxygen Delivery Me thod Room Air Course Course ED Course: The reviewed orthopedic offices from July 01 in June say when patient is seen for concerns about her wound, debrided on July 03 and I did review the images in the note from that visit. Patient presents today with drainage from her incision for her PERC placement. In the mid point, there is an area of dehiscence with some necrotic tissue. Copious serosanguineous drainage from this area. Wound was gently debrided and additional serosanguineous fluid was expressed. It is approximately 100 mL total was removed from the wound using suction. No purulent drainage. Will discuss with Orthopedics. Patient has an appointment with orthopedics in the morning as well as wound clinic the next day. Reevaluation(s) Time of Reevaluation #1: 00:41 Reevaluation #1: Care discussed with Jackeline Tate who knows the patient well, has an appointment with the patient and about 8 hours. Recommends packing the wound with gauze and absorbent dressing and will follow-up. Time of Reevaluation #2: 00:48 Reevaluation #2: Patient recheck, the gauze that was placed on the wound has scan serous drainage. I did express another 3-4 mL of fluid out. A 2 x 2 packing was placed in the wound with that sort of dressing over and patient discharged. Vital Signs Vital signs: Initial Vital Signs Temperature 98.7 F 07/05/25 23:15 Temperature Source Temporal Artery Scan 07/05/25 23:15 Pulse Rate 117 H 07/05/25 23:15 Respiratory Rate 18 07/05/25 23:15 Blood Pressure 104/59 L 07/05/25 23:15 Blood Pressure Mean 74 07/05/25 23:15 Blood Pressure Position Sitting 07/05/25 23:15 Pulse Oximetry 96 07/05/25 23:15 Oxygen Delivery Method Room Air 07/05/25 23:15 Vital Signs Temperature 98.7 F 07/05/25 23:15 Pulse Rate 117 H 07/05/25 23:15 Respiratory Rate 18 07/05/25 23:15 Blood Pressure 104/59 L 07/05/25 23:15 Pulse Oximetry 96 07/05/25 23:15 Oxygen Delivery Method Room Air 07/05/25 23:15 Temperature 98.7 F 07/05/25 23:15 Pulse Rate 117 H 07/05/25 23:15 Respiratory Rate 18 07/05/25 23:15 Blood Pressure 104/59 L 07/05/25 23:15 Pulse Oximetry 96 07/05/25 23:15 Oxygen Delivery Method Room Air 07/05/25 23:15 Discharge Plan Discharge Clinical Impression: Status post total hip replacement, left, Seroma after procedure Wound disruption, post-op, skin Qualifiers: Encounter type: initial encounter Qualified Code(s): T81.31XA - Disruption of external operation (surgical) wound, not elsewhere classified, initial encounter Patient Disposition: Home, Self-Care Condition: Improved Instructions: Seroma (DC) Additional Instructions: Leave current a dressing in place. Follow-up with orthopedics in the morning as scheduled. Activity Level: Activity as Tolerated Discharge Diet: Regular Prescriptions: No Action phentermine 30 mg capsule 30 mg PO QDAY Qty: 90 0RF Rx Instructions: must administer 2 hours after breakfast aspirin [Adult Low Dose Aspirin] 81 mg tablet,delayed release (DR/EC) 81 mg PO QDAY ibuprofen [Motrin IB] 200 mg tablet 400 mg PO Q8H PRN cephalexin 500 mg capsule 500 mg PO QID Qty: 40 0RF aspirin [Aspirin Childrens] 81 mg tablet,chewable 81 mg PO BID 30 Days Qty: 60 0RF atorvastatin 40 mg tablet 40 mg PO QDAY Qty: 90 1RF amlodipine 5 mg tablet 5 mg PO QDAY Qty: 90 1RF lisinopril-hydrochlorothiazide 20-12.5 mg tablet 2 tab PO QDAY Qty: 180 3RF Follow Up/Referrals: Shanita Wilson CNP [Primary Care Provider, Family Practice] Stand Alone Forms: [facility] Info Instructions
== END 2025-07-06 01:16 | disposition home or self-care (01) ==
PROVIDERS: Emergency Provider Family Medicine; PCP Nurse Practitioner Family
DX: T81.31XA Disruption of external operation (surgical) wound, not elsewhere classified, initial encounter (principal); L76.34 Postprocedural seroma of skin and subcutaneous tissue following other procedure
CPT/HCPCS: 87070; 87205; 99283; 99284

== ENCOUNTER 2025-07-06 20:20 | Inpatient (IN) | payer MEDICARE, BC, SELFPAY ==
[2025-07-06] VITALS (20 sets, daily range): BP systolic 69–123; BP diastolic 33–75; PULSE 73–97; RESP 14–23; TEMP 35.8–36.7; O2SAT 86–99; BMI 52.7
[2025-07-06] MEDS: LACTATED RINGERS 1000 ML 1,000 ML 100 ML IV ×2 (14:05→17:41)
[2025-07-06] MEDS: SODIUM CHLORIDE 0.9 % (FLUSH) 10 ML SYRINGE IVF (14:36)
[2025-07-06] MEDS: VANCOMYCIN 2 GM/400 ML 2 GM/400 ML PIGGYBACK IVPB (16:45)
[2025-07-06] MEDS: PHENYLEPHRINE 100 MCG/ML SYRINGE IVP (17:48)
[2025-07-06] MEDS: ACETAMINOPHEN 500 MG TABLET 1000 MG PO (20:11)
[2025-07-06] MEDS: SENNOSIDES 1 TAB TABLET 2 TAB PO (21:07)
[2025-07-06] MEDS: ASPIRIN 81 MG TAB.CHEW PO (21:07)
[2025-07-06] MEDS: ATORVASTATIN CALCIUM 40 MG TABLET PO (22:02)
[2025-07-06] MEDS: ERTAPENEM 1 GM in 0.9 % SODIUM CHLORIDE Mini-bag 100 ML IVPB (22:02)
[2025-07-07] VITALS (9 sets, daily range): BP systolic 100–128; BP diastolic 43–79; PULSE 68–89; RESP 14–18; TEMP 36.3–37; O2SAT 95–99
[2025-07-07] MEDS: ACETAMINOPHEN 500 MG TABLET 1000 MG PO ×4 (01:34→20:39)
[2025-07-07] MEDS: VANCOMYCIN 2 GM/400 ML 2 GM/400 ML PIGGYBACK IVPB ×2 (05:09→17:05)
[2025-07-07 06:53] LABS: Hematocrit 29.8 % (33.0-51.0); Hemoglobin* 9.4 gm/dL (12.0-16.0); Immature Granulocytes Abs Auto 0.03 K/uL (0.00-0.30); Immature Granulocytes Pct Auto 0.3 %; Mean Corpuscular HGB Conc 32 gm/dL (32-36); Mean Corpuscular Hemoglobin 29 pg (26-34); Mean Corpuscular Volume 90 fL (80-100); RDW Coefficient of Variation % 13.8 % (11.5-15.5); Red Blood Count 3.30 m/uL (4.00-5.20); White Blood Count* 9.50 K/uL (4.50-11.00)
[2025-07-07 07:04] LABS: Lymphocytes Absolute Auto 0.90 K/uL (0.90-2.90); Slide Review Reflex No
[2025-07-07 07:49] LABS: Erythrocyte SedimentationRate* 51 mm/hr (2-20)
[2025-07-07] MEDS: ASPIRIN 81 MG TAB.CHEW PO ×2 (09:15→20:40)
[2025-07-07] MEDS: SENNOSIDES 1 TAB TABLET 2 TAB PO ×2 (09:15→20:39)
[2025-07-07] MEDS: cefTRIAXone 2 GM in 0.9 % SODIUM CHLORIDE Mini-bag 100 ML IVPB (12:08)
[2025-07-07] MEDS: ATORVASTATIN CALCIUM 40 MG TABLET PO (20:39)
[2025-07-08] VITALS (7 sets, daily range): BP systolic 107–129; BP diastolic 65–85; PULSE 75–89; RESP 16–18; TEMP 36.4–36.8; O2SAT 94–98
[2025-07-08] MEDS: ACETAMINOPHEN 500 MG TABLET 1000 MG PO ×4 (02:06→21:04)
[2025-07-08] MEDS: VANCOMYCIN 2 GM/400 ML 2 GM/400 ML PIGGYBACK IVPB ×2 (05:00→17:08)
[2025-07-08] MEDS: cefTRIAXone 2 GM in 0.9 % SODIUM CHLORIDE Mini-bag 100 ML IVPB (09:37)
[2025-07-08] MEDS: ASPIRIN 81 MG TAB.CHEW PO ×2 (09:39→21:05)
[2025-07-08] MEDS: SENNOSIDES 1 TAB TABLET 2 TAB PO (09:39)
[2025-07-08] MEDS: ATORVASTATIN CALCIUM 40 MG TABLET PO (21:04)
[2025-07-09 02:10] VITALS: BP 118/72; PULSE 77; RESP 18; TEMP 36.7; O2SAT 96
[2025-07-09] MEDS: ACETAMINOPHEN 500 MG TABLET 1000 MG PO ×3 (02:11→17:52)
[2025-07-09] MEDS: VANCOMYCIN 2 GM/400 ML 2 GM/400 ML PIGGYBACK IVPB ×2 (04:50→17:53)
[2025-07-09 07:00] VITALS: BP 132/75; PULSE 87; RESP 20; TEMP 36.7; O2SAT 97
[2025-07-09] MEDS: ASPIRIN 81 MG TAB.CHEW PO ×2 (08:34→20:51)
[2025-07-09] MEDS: cefTRIAXone 2 GM in 0.9 % SODIUM CHLORIDE Mini-bag 100 ML IVPB (11:06)
[2025-07-09 15:00] VITALS: RESP 20; O2SAT 98
[2025-07-09 16:16] VITALS: BP 124/67; PULSE 75; RESP 20; TEMP 36.4; O2SAT 98
[2025-07-09 19:46] VITALS: BP 125/88; PULSE 83; RESP 18; TEMP 37.1; O2SAT 96
[2025-07-09] MEDS: ATORVASTATIN CALCIUM 40 MG TABLET PO (20:51)
[2025-07-09 23:00] VITALS: RESP 18; O2SAT 96
[2025-07-10 00:02] VITALS: BP 131/76; PULSE 85; RESP 18; TEMP 36.7; O2SAT 96
[2025-07-10] MEDS: ACETAMINOPHEN 500 MG TABLET 1000 MG PO ×3 (00:09→12:18)
[2025-07-10 05:18] VITALS: BP 123/75; PULSE 78; RESP 16; TEMP 36.7; O2SAT 95
[2025-07-10] MEDS: VANCOMYCIN 2 GM/400 ML 2 GM/400 ML PIGGYBACK IVPB (05:28)
[2025-07-10 07:00] VITALS: BP 143/93; PULSE 93; RESP 16; TEMP 37; O2SAT 98
[2025-07-10] MEDS: ASPIRIN 81 MG TAB.CHEW PO (09:00)
[2025-07-10] MEDS: cefTRIAXone 2 GM in 0.9 % SODIUM CHLORIDE Mini-bag 100 ML IVPB (10:20)
[2025-07-10 11:00] VITALS: BP 159/88; PULSE 89; RESP 16; TEMP 36.7; O2SAT 98
== END 2025-07-10 15:36 | disposition home or self-care (01) | DRG 857 ==
LOC: MEDSURG 20:21
PROVIDERS: Admitting Provider Family Medicine; PCP Nurse Practitioner Family; Visit Provider Orthopaedic Surgery
PROC: 0JBM0ZZ Excision of Left Upper Leg Subcutaneous Tissue and Fascia, Open Approach (ICD-10-PCS; principal; 2025-07-06 15:30)
DX: T81.41XA Infection following a procedure, superficial incisional surgical site, initial encounter (principal); L76.34 Postprocedural seroma of skin and subcutaneous tissue following other procedure; T81.31XA Disruption of external operation (surgical) wound, not elsewhere classified, initial encounter; Z68.43 Body mass index [BMI] 50.0-59.9, adult; Z16.23 Resistance to quinolones and fluoroquinolones; B96.89 Other specified bacterial agents as the cause of diseases classified elsewhere; E66.01 Morbid (severe) obesity due to excess calories; E13.9 Other specified diabetes mellitus without complications; Z79.82 Long term (current) use of aspirin; B96.6 Bacteroides fragilis [B. fragilis] as the cause of diseases classified elsewhere; B95.4 Other streptococcus as the cause of diseases classified elsewhere; Z79.84 Long term (current) use of oral hypoglycemic drugs; I10 Essential (primary) hypertension; E78.5 Hyperlipidemia, unspecified
CPT/HCPCS: 00400; 36415; 85025; 85651; 86140; 87070; 87075; 87076; 87077; 87181; 87205; 97110; 97116; 97161; 97530; 99283; A9270; C1713; J0696; J1100; J1335; J1885; J2371; J2405; J2704; J3010; J3375; J3490; J7050; J7120

== ENCOUNTER 2025-07-15 14:29 | Outpatient (CLI) | payer MEDICARE, BC, SELFPAY | END 2025-07-15 14:30 | disposition home or self-care (01) | LOC: WOUND 14:30 | PROVIDERS: PCP Nurse Practitioner Family; Visit Provider Surgery | DX: T81.42XA Infection following a procedure, deep incisional surgical site, initial encounter (principal); T81.329A Deep disruption or dehiscence of operation wound, unspecified, initial encounter; E11.9 Type 2 diabetes mellitus without complications; E66.01 Morbid (severe) obesity due to excess calories; Z68.43 Body mass index [BMI] 50.0-59.9, adult; Z79.84 Long term (current) use of oral hypoglycemic drugs | CPT/HCPCS: 97605; G0463 ==

== ENCOUNTER 2025-07-22 14:42 | Outpatient (CLI) | payer MEDICARE, BC, SELFPAY | END 2025-07-22 14:43 | disposition home or self-care (01) | LOC: WOUND 14:43 | PROVIDERS: PCP Nurse Practitioner Family; Visit Provider Surgery | DX: T81.42XA Infection following a procedure, deep incisional surgical site, initial encounter (principal); E11.9 Type 2 diabetes mellitus without complications; Z96.642 Presence of left artificial hip joint | CPT/HCPCS: 97605 ==

== ENCOUNTER 2025-07-29 15:07 | Outpatient (CLI) | payer MEDICARE, BC, SELFPAY | END 2025-07-29 15:08 | disposition home or self-care (01) | LOC: WOUND 15:07 | PROVIDERS: PCP Nurse Practitioner Family; Visit Provider Surgery | DX: T81.329A Deep disruption or dehiscence of operation wound, unspecified, initial encounter (principal); E11.9 Type 2 diabetes mellitus without complications; Z96.642 Presence of left artificial hip joint; E66.01 Morbid (severe) obesity due to excess calories; Z68.43 Body mass index [BMI] 50.0-59.9, adult; Z79.84 Long term (current) use of oral hypoglycemic drugs | CPT/HCPCS: 97605 ==

== ENCOUNTER 2025-08-12 15:06 | Outpatient (CLI) | payer MEDICARE, BC, SELFPAY | END 2025-08-12 15:07 | disposition home or self-care (01) | LOC: WOUND 15:06 | PROVIDERS: PCP Nurse Practitioner Family; Visit Provider Surgery | DX: T81.42XA Infection following a procedure, deep incisional surgical site, initial encounter (principal); Z96.642 Presence of left artificial hip joint; E11.9 Type 2 diabetes mellitus without complications; E66.01 Morbid (severe) obesity due to excess calories; Z68.43 Body mass index [BMI] 50.0-59.9, adult | CPT/HCPCS: 97605 ==

== ENCOUNTER 2025-08-19 14:59 | Outpatient (CLI) | payer MEDICARE, BC, SELFPAY | END 2025-08-19 15:00 | disposition home or self-care (01) | LOC: WOUND 14:59 | PROVIDERS: PCP Nurse Practitioner Family; Visit Provider Surgery | DX: T81.329A Deep disruption or dehiscence of operation wound, unspecified, initial encounter (principal); Z96.642 Presence of left artificial hip joint; E66.01 Morbid (severe) obesity due to excess calories; Z68.43 Body mass index [BMI] 50.0-59.9, adult; E11.9 Type 2 diabetes mellitus without complications | CPT/HCPCS: G0463 ==

== ENCOUNTER 2025-08-26 13:50 | Outpatient (CLI) | payer MEDICARE, BC, SELFPAY | END 2025-08-26 13:51 | disposition home or self-care (01) | LOC: WOUND 13:51 | PROVIDERS: PCP Nurse Practitioner Family; Visit Provider Surgery | DX: T81.329A Deep disruption or dehiscence of operation wound, unspecified, initial encounter (principal); Z96.642 Presence of left artificial hip joint; E11.9 Type 2 diabetes mellitus without complications; E66.01 Morbid (severe) obesity due to excess calories; Z68.43 Body mass index [BMI] 50.0-59.9, adult | CPT/HCPCS: G0463 ==

== ENCOUNTER 2025-09-02 15:02 | Outpatient (CLI) | payer MEDICARE, BC, SELFPAY | END 2025-09-02 15:03 | disposition home or self-care (01) | LOC: WOUND 15:02 | PROVIDERS: PCP Nurse Practitioner Family; Visit Provider Surgery | DX: T81.329A Deep disruption or dehiscence of operation wound, unspecified, initial encounter (principal); Z96.642 Presence of left artificial hip joint; E11.9 Type 2 diabetes mellitus without complications; E66.01 Morbid (severe) obesity due to excess calories; Z68.43 Body mass index [BMI] 50.0-59.9, adult | CPT/HCPCS: 11042 ==

== ENCOUNTER 2025-09-09 15:06 | Outpatient (CLI) | payer MEDICARE, BC, SELFPAY | END 2025-09-09 15:07 | disposition home or self-care (01) | LOC: WOUND 15:07 | PROVIDERS: PCP Nurse Practitioner Family; Visit Provider Surgery | DX: T81.329A Deep disruption or dehiscence of operation wound, unspecified, initial encounter (principal); Z96.642 Presence of left artificial hip joint; E11.9 Type 2 diabetes mellitus without complications; E66.01 Morbid (severe) obesity due to excess calories; Z68.43 Body mass index [BMI] 50.0-59.9, adult | CPT/HCPCS: G0463 ==

== ENCOUNTER 2025-09-23 14:45 | Outpatient (CLI) | payer MEDICARE, BC, SELFPAY | END 2025-09-23 14:46 | disposition home or self-care (01) | LOC: WOUND 14:45 | PROVIDERS: PCP Nurse Practitioner Family; Visit Provider Surgery | DX: T81.329A Deep disruption or dehiscence of operation wound, unspecified, initial encounter (principal); Z96.642 Presence of left artificial hip joint; L92.8 Other granulomatous disorders of the skin and subcutaneous tissue; E11.9 Type 2 diabetes mellitus without complications; E66.01 Morbid (severe) obesity due to excess calories; Z68.43 Body mass index [BMI] 50.0-59.9, adult | CPT/HCPCS: 17250 ==

== ENCOUNTER 2025-10-07 12:41 | Outpatient (CLI) | payer MEDICARE, BC, SELFPAY | END 2025-10-07 12:42 | disposition home or self-care (01) | LOC: WOUND 12:41 | PROVIDERS: PCP Nurse Practitioner Family; Visit Provider Surgery | DX: T81.329D Deep disruption or dehiscence of operation wound, unspecified, subsequent encounter (principal); Z96.642 Presence of left artificial hip joint; E11.9 Type 2 diabetes mellitus without complications; E66.01 Morbid (severe) obesity due to excess calories; Z68.43 Body mass index [BMI] 50.0-59.9, adult; B37.2 Candidiasis of skin and nail | CPT/HCPCS: G0463 ==